=== PATIENT | female | born 1980 | race Caucasian/White ===

== ENCOUNTER → 2016-08-25 | Outpatient (CLI) | payer BC ==
[~2016-08-25] MED LIST: CYM60 PO; ELET40TA PO; GLC500 PO; HYDR-1838 PO; INDSR/120 PO; LIRA18IN SQ; SUMA100T16 PO; ZMG5 PO; cozaar PO
--- NOTE | 2016-08-25 10:55 | DIAGNOSTIC IMAGING REPORT ---
CT SCAN OF THE PARANASAL SINUSES CLINICAL HISTORY: Sphenoid sinus cyst. COMPARISON STUDY: CT scan of the paranasal sinuses dated 06/02/2016. MRI of the brain dated 05/10/2016. TECHNIQUE: High-resolution CT scan of the paranasal sinuses is performed. Images are reviewed in the axial, sagittal, and coronal planes. IV contrast was not administered for this examination. The examination was performed utilizing the fusion protocol. CT DOSE: 602.55 mGy.cm FINDINGS: Maxillary antra: There is mild nodular mucosal thickening present within the maxillary antra bilaterally. Anterior ethmoid sinuses: Trace mucosal thickening is seen bilaterally. Posterior ethmoid sinuses: Trace mucosal thickening is seen on the left. Clear in the right. Sphenoid sinuses: There is mucosal thickening with a probable 1.2 cm retention cyst is noted in the sphenoid sinuses. This has significantly decreased in size from 06/02/2016. There is increasing sclerosis and thickening of the sphenoid sinus wall as compared to previous. Frontal sinuses: Trace mucosal thickening is seen bilaterally. Ostiomeatal complexes: Patent bilaterally. Frontoethmoidal and sphenoethmoidal recesses: Patent bilaterally. Carotid arteries: The carotid arteries are protuberant but covered and without septal attachments. Ethmoid roofs: The ethmoid roofs are symmetric. Nasal turbinates: Normal in appearance. Nasal septum: There is leftward deviation of the bony nasal septum. Optic nerves: Covered. Orbits: The bony orbits are intact. Orbital contents are normal in appearance. Calvarium: The imaged calvarium is normal in appearance Mastoid air cells: Well pneumatized. Brain parenchyma: There is a 1.5 cm hyperdense focus identified in the right parietal lobe. This was better characterized as a cavernoma on the 05/10/2016 MRI. Partially visualized brain parenchyma is otherwise within normal limits. IMPRESSION: 1. Paranasal sinus disease as above. 2. Again seen is a small cyst in the sphenoid sinus. This has significantly decreased in size from the 06/02/2016 examination and there is increasing thickening and sclerosis of the sphenoid sinus wall. 3. 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 This was better characterized on the previous MRI of the brain. Electronically signed by: Hema Smith M.D. 08/25/2016 10:54 AM Dictated Date/Time: 08/25/2016 10:43 AM
== END | disposition home or self-care (01) ==
LOC: C.CTS 09:49
PROVIDERS: ATTEND Hospitalist
DX: J34.1 Cyst and mucocele of nose and nasal sinus (principal)

== ENCOUNTER → 2016-10-11 | Outpatient (CLI) | payer OTHER ==
[2016-10-11 09:43] LABS: BLOOD UREA NITROGEN 14 mg/dl (7-18); BUN/CREATININE RATIO 23.4 (10-20); CARBON DIOXIDE 24 mmol/L (21-32); CHLORIDE 107 mmol/L (98-107); CHOLESTEROL 156 mg/dl (0-200); CREATININE 0.61 mg/dl (0.60-1.20); GLUCOSE 151 mg/dl (70-99); POTASSIUM 4.4 mmol/L (3.5-5.1); SODIUM 140 mmol/L (136-145)
[2016-10-11 09:54] LABS: CHOLESTEROL/HDL RATIO 3.2; HDL CHOLESTEROL 49 mg/dl; LDL CHOLESTEROL CALCULATED 75 mg/dl; TRIGLYCERIDES 161 mg/dl (0-150); VERY LOW DENSITY LIPOPROT CALC 32 mg/dl
== END | disposition home or self-care (01) ==
LOC: C.LAB1850 08:02
PROVIDERS: ATTEND Internal Medicine Pulmonary Disease
DX: E78.5 Hyperlipidemia, unspecified (principal)

== ENCOUNTER → 2017-02-24 | Outpatient (CLI) | payer OTHER ==
[2017-02-24 09:58] LABS: ESTIMATED AVERAGE GLUCOSE 134 mg/dl; HA1C FLAG Normal (Normal)
[2017-02-24 10:14] LABS: ALT/SGPT 45 U/L (12-78); AST/SGOT 21 U/L (15-37); BLOOD UREA NITROGEN 16 mg/dl (7-18); BUN/CREATININE RATIO 22.2 (10-20); CALCIUM 8.8 mg/dl (8.5-10.1); CARBON DIOXIDE 24 mmol/L (21-32); CHLORIDE 106 mmol/L (98-107); GLUCOSE 128 mg/dl (70-99); SODIUM 137 mmol/L (136-145)
[2017-02-24 10:21] LABS: RATIO 8.7 mcg/mg (0-30.0)
[2017-02-24 10:25] LABS: ALB/GLOB RATIO 1.2 (0.9-2); ALKALINE PHOSPHATASE 59 U/L (45-117); CHOLESTEROL 129 mg/dl (0-200); CHOLESTEROL/HDL RATIO 2.5; HDL CHOLESTEROL 51 mg/dl; LDL CHOLESTEROL CALCULATED 34 mg/dl; TRIGLYCERIDES 218 mg/dl (0-150); VERY LOW DENSITY LIPOPROT CALC 44 mg/dl
== END | disposition home or self-care (01) ==
LOC: C.LAB1850 08:16
PROVIDERS: ATTEND Internal Medicine
DX: E11.9 Type 2 diabetes mellitus without complications (principal); I10 Essential (primary) hypertension; E78.5 Hyperlipidemia, unspecified; E55.9 Vitamin D deficiency, unspecified

== ENCOUNTER → 2017-04-05 | Outpatient (CLI) | payer OTHER ==
--- NOTE | 2017-04-05 17:29 | DIAGNOSTIC IMAGING REPORT ---
CT OF THE SINUSES WITHOUT CONTRAST FUSION PROTOCOL CLINICAL HISTORY: Chronic sinusitis. Opacification of sphenoid sinus. COMPARISON STUDY: Sinus CT August 25, 2016. TECHNIQUE: Axial images of the sinuses were obtained without IV contrast according to Fusion protocol. Coronal reformats were viewed. FINDINGS: A 1.7 cm hyperdense right parietal lobe lesion is similar to prior exams and shown to represent a cavernoma on MRI of May 10, 2016. Mastoid air cells are clear. There is no fluid within the middle ears. Orbits are unremarkable. The cystic focus shown within the sphenoid sinus on exam of August 25, 2016 has resolved. There is leftward deviation of the nasal septum with spur formation. No bony destruction is present. Major drainage pathways are patent. No mass is identified within the sinuses or nasal cavity. Orbits are unremarkable. IMPRESSION: 1. Resolution of the cystic lesion within the sphenoid sinus since sinus CT of August 25, 2016. Sinuses essentially clear with patent major drainage pathways. 2. 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 Electronically signed by: Brandon Haas M.D. 04/05/2017 5:28 PM Dictated Date/Time: 04/05/2017 5:22 PM
== END | disposition home or self-care (01) ==
LOC: C.CTS 15:35
PROVIDERS: ATTEND Physician Assistant
DX: J32.9 Chronic sinusitis, unspecified (principal); R93.0 Abnormal findings on diagnostic imaging of skull and head, not elsewhere classified; G93.89 Other specified disorders of brain

== ENCOUNTER → 2017-05-09 | Outpatient (CLI) | payer OTHER ==
[2017-05-09 14:07] LABS: BLOOD UREA NITROGEN 18 mg/dl (7-18)
== END | disposition home or self-care (01) ==
LOC: C.LAB 12:03
PROVIDERS: ATTEND Psychiatry & Neurology Neurology
DX: Z00.00 Encounter for general adult medical examination without abnormal findings (principal); E11.9 Type 2 diabetes mellitus without complications

== ENCOUNTER → 2017-05-11 | Outpatient (CLI) | payer OTHER ==
[~2017-05-11] MED LIST changes: +GADAVIST IV PRN
--- NOTE | 2017-05-11 09:06 | DIAGNOSTIC IMAGING REPORT ---
Brain MRI WITH AND WITHOUT CONTRAST HISTORY: Cavernoma. Follow-up. TECHNIQUE: Multiplanar multisequence MRI of the brain was performed both before and after the intravenous administration of contrast. COMPARISON STUDY: Brain MRI 05/10/2016. FINDINGS: There are no areas of restricted diffusion to suggest acute infarction. The midline structures are intact. The paranasal sinuses are clear. The mastoid air cells are clear. The ventricles and sulci are within normal limits for age. There is no acute hematoma or midline shift. The major vascular flow-voids at the skull base are well maintained. No change in size or appearance of the 1.6 x 1.4 cm right parietal cavernoma. IMPRESSION: 1. No acute intracranial abnormality. 2. No significant change in size or appearance of the 1.6 x 1.4 cm right parietal cavernoma. Electronically signed by: Marcello Markham M.D. 05/11/2017 9:05 AM Dictated Date/Time: 05/11/2017 8:58 AM
== END | disposition home or self-care (01) ==
LOC: C.MRI 07:58
PROVIDERS: ATTEND Psychiatry & Neurology Neurology
DX: D18.01 Hemangioma of skin and subcutaneous tissue (principal)

== ENCOUNTER → 2017-06-14 | Outpatient (CLI) | payer OTHER ==
[~2017-06-14] MED LIST changes: -GADAVIST IV PRN
--- NOTE | 2017-06-14 17:06 | EEG Procedure Note ---
EEG Procedure Note Date of Service Jun 14, 2017. Start / End Times Start Time: 8:17 AM End Time: 8:37 AM Referring Physician Jones Baeza History This is a 37-year-old female with dizzy spells. EEG for further evaluation of possible seizure etiology. Home Medication List Scheduled Duloxetine Hcl (Cymbalta *), 60 MG PO DAILY Eletriptan (Relpax), 40 MG PO DIRECTED Liraglutide (Victoza), 1 INJ SQ DAILY Metformin HCL (Glucophage *), 1,000 MG PO BID Propranolol La (Inderal La), 120 MG PO DAILY Sumatriptan Succinate (Imitrex), 100 MG PO PRN Zolmitriptan (Zomig), 1 TAB PO UD [cozaar], 1 TAB PO DAILY Scheduled PRN Hydrocodone/Acetaminophen (Nelson 5MG/325MG), 1 TABLET PO Description This is a 21 electrode EEG with a single channel dedicated to limited EKG. The electrodes were placed in accordance with the International 10-20 system. At the start of the recording the patient was in an awake state. Background was well organized and composed of symmetric mixed alpha and beta frequencies. There was a symmetric well-formed moderate amplitude 10 Hz posterior dominant rhythm that was reactive to eye opening and closure. Hyperventilation with good effort produced no abnormalities. Intermittent photic stimulation at various frequencies produced no abnormalities. Drowsiness was indicated by loss of muscle artifact and slowing of background rhythm. There was no sleep transients. Interpretation This is a normal awake and drowsy routine EEG. There was no electrographic seizures or epileptiform discharges. Clinical Correlation A normal EEG does not rule out epilepsy if there is a strong clinical suspicion.
== END | disposition home or self-care (01) ==
LOC: C.NEUR 08:00
PROVIDERS: ATTEND Psychiatry & Neurology Neurology
DX: R42 Dizziness and giddiness (principal)

== ENCOUNTER → 2017-08-21 | Outpatient (CLI) | payer OTHER | END | disposition home or self-care (01) | LOC: C.PAPS 14:47 | PROVIDERS: ATTEND Obstetrics & Gynecology | DX: Z01.411 Encounter for gynecological examination (general) (routine) with abnormal findings (principal); R87.610 Atypical squamous cells of undetermined significance on cytologic smear of cervix (ASC-US) ==